=== PATIENT | female | born 2005 | race Caucasian/White ===

== ENCOUNTER 2023-05-31 02:43 | Emergency (ER) | payer OTHER, SELFPAY ==
--- NOTE | 2023-05-31 03:52 | DOWNTIME ---
There was a [employer] Downtime on 05/31/2023 from 0100 to 05/31/2023 at 0322. Downtime documentation of patient's care, including medication administrations, has been reconciled in the electronic record per guidelines. Refer to the
patient's paper chart under the miscellaneous tab to see printed paper medication records and downtime forms.
--- NOTE | 2023-05-31 03:56 | ED.GENMED ---
History of Present Illness
<ERICK Mcdaniel - Last Filed: 05/31/23 04:05>
General
Chief Complaint: Abdominal Symptoms
Source: patient
Time Seen by Provider: 05/31/23 03:56
History of Present Illness
History of Present Illness:
Pt is a 17 year old female presenting with N/V x 4 hours after taking 11 shots of alcohol. Pt reports beginning drinking at 10 pm, noting she began throwing up 1 hour after. She denies using any other substances other than alcohol. She reports 5
episodes of emesis since she began throwing up 4 hours ago. She reports abdominal pain, SOB, double vision, and PINEDO (5/10). She notes she usually gets a headache when she drinks but has never had this reaction before. She denies taking anything for
her current symptoms and states she has tried drinking some water but has not been able to keep any down. She denies chest pain, palpitations, and diarrhea. She states her last meal was at 5 pm and had mozzarella sticks. Pt reports allergy to
Amoxicillin. Pt denies taking any medications.
Review of Systems
<ERICK Mcdaniel - Last Filed: 05/31/23 04:05>
Review of Systems
Allergies reviewed?: Yes
Constitutional: Reports no symptoms
EENT: Reports no symptoms
Respiratory: Reports trouble breathing
Cardiac: Reports no symptoms
ABD/GI: Reports abdominal pain, nausea and vomiting
: Reports no symptoms
Musculoskeletal: Reports no symptoms
Skin: Reports no symptoms
Neurological: Reports dizzy and headache (mild)
Endocrine: Reports no symptoms
Hematologic/Lymphatic: Reports no symptoms
Psychiatric: Reports no symptoms
Phy Exam
<ERICK Mcdaniel - Last Filed: 05/31/23 04:05>
General Physical Exam
General Presentation: no apparent distress and other (intoxicated)
General age: appears stated age
General Skin: warm and dry
General Habitus: normal
General Mental: appears intoxicated
General Hydration: dry mucous membranes
ENT Exam
ENT Exam: EOMI, neck supple and other (gaze-evoked nystagmus)
Cardiovascular Exam
Cardiovascular Exam: regular rate/rhythm, no edema, no murmur and normal peripheral pulses
Pulmonary Exam
Pulmonary Exam: lungs clear, no respiratory distress, no rales, no crackles, no rhonchi and no cough
Neurological Exam
Neurological Exam: appears intoxicated
Mental
Mental Status: appears mod intoxicated
Skin Exam
Skin Exam: normal color
Psychiatric Exam
Psychiatric Exam: normal mood/affect
Course
<ST JonasPA - Last Filed: 05/31/23 04:05>
Orders/Labs/Results
Orders:
Orders
05/31/23 04:16
Ondansetron Orally Disint [Zofran Odt (Orally Disintegrating)] 4 mg PO NOW STA
Vital Signs
Initial and Last Documented VS:
Initial Vital Signs
Resp BP Pulse Ox
16 106/68 98
05/31/23 04:25 05/31/23 04:25 05/31/23 04:25
Last Documented Vital Signs
Resp BP Pulse Ox
16 106/68 98
05/31/23 04:25 05/31/23 04:25 05/31/23 04:25
<Ryan Bay DO - Last Filed: 05/31/23 05:08>
Orders/Labs/Results
Orders:
Orders
05/31/23 04:16
Ondansetron Orally Disint [Zofran Odt (Orally Disintegrating)] 4 mg PO NOW STA
Vital Signs
Initial and Last Documented VS:
Initial Vital Signs
Resp BP Pulse Ox
16 106/68 98
05/31/23 04:25 05/31/23 04:25 05/31/23 04:25
Last Documented Vital Signs
Resp BP Pulse Ox
16 106/68 98
05/31/23 04:25 05/31/23 04:25 05/31/23 04:25
<ERICK Mcdaniel - Last Filed: 05/31/23 04:05>
MDM/Problems Addressed
Differential Diagnosis Includes:
Alcohol intoxication, dehydration, gastritis, hypoglycemia
MDM/Problems Addressed:
Nausea and vomiting
<ERICK Mcdaniel - Last Filed: 05/31/23 04:05>
*Pulse Oximetry
Patient hypoxic: no
*Critical Care Note
Total Time (30-74mins, 75-104mins- exclusive of procedures): Not Applicable
ED Attending Note
<ERICK Mcdaniel - Last Filed: 05/31/23 04:05>
-
Portions of this chart may have been created with voice recognition software.� Occasional wrong word or��sound alike� substitutions may have occurred due to the inherent limitations of voice recognition software.
<Ryan Bay DO - Last Filed: 05/31/23 05:08>
ED Attending Note
Patient seen and examined by attending physician: Yes
I performed the substantive portion of visit, reviewed & personally made and approve the management plan that is documented in note by myself or WILLI.: Yes
ED Attending Note:
17-year-old female presents with nausea and vomiting after doing 11 shots of 'fireball ', and alcoholic beverage. Patient started drinking at 10 and vomited shortly thereafter. She denies taking any other substances. Patient was seen in
conjunction with the PA student. I have reviewed and agree with the history and treatment plan presented. On my independent physical exam, patient is awake, alert, and oriented x3, though somnolent. Heart is regular rate and rhythm. Lungs are
clear to auscultation bilaterally. Moves all 4 extremities.
Discharge Plan
Departure
Patient Disposition: Home (Routine Discharge)
Date of Disposition: 05/31/23
Time of Disposition: 05:07
Patient with high blood pressure during this ER visit?: No
Condition: Good
Discharge Problem:
Alcohol abuse
Instructions: Binge Drinking
Referrals:
NONE,* [Family Provider] -
[facility] [Outside]
Interventions
Interventions:
[facility] Assessment Last Done: 05/31/23 04:20
Discharge Date and Time
Print Language: CANADIAN
[2023-05-31] MEDS: ZOFRAN ODT (ORALLY DISINTEGRATING) 4 MG PO (04:16)
[2023-05-31 04:25] VITALS: BP 106/68
[2023-05-31 05:00] VITALS: BP 111/61
[2023-05-31 06:00] VITALS: BP 111/65
== END 2023-05-31 06:10 | disposition home or self-care (01) ==
LOC: EMR 02:43
PROVIDERS: EMERGENCY PHYSICIAN Student in an Organized Health Care Education/Training Program
DX: F10.10 Alcohol abuse, uncomplicated (principal)
CPT/HCPCS: 99282

== ENCOUNTER 2023-06-06 00:01 | Emergency (ER) | payer OTHER, SELFPAY ==
[2023-06-06 02:49] VITALS: BP 116/72
[2023-06-06 03:00] VITALS: BP 106/65
--- NOTE | 2023-06-06 03:08 | ED.GENMED ---
History of Present Illness
<ERICK Britt - Last Filed: 06/06/23 06:10>
General
Chief Complaint: Abdominal Symptoms
Source: patient
Exam Limitations: none
Time Seen by Provider: 06/06/23 02:54
Nursing documentation reviewed up to this point in time: agreed with
Travel History
Have you had any contact with someone who has COVID-19?: No
Do you have any symptoms of coronavirus? Fever > 100 degrees, chills, cough, shortness of breath, sore throat, loss of taste or smell, muscle aches, or headache?: No
History of Present Illness
History of Present Illness:
Patient is a 17 y/o female presenting with nausea and vomiting x 1 day. Patient states she started vomiting this morning after eating her breakfast. patient states she has vomited 30+ times since then and is unable to keep fluids or food down.
Patient admits to taking an over the counter nausea medication that did not give relief. Patient adm,its to increased diarrhea that is non bloody. Patient admits to abdominal pain that is located in the epigastric region that started at the same
time. Patient admits to dizziness that has gotten worse throughout the day. Patient denies any change in medication, any travel or sick contacts. Patient denies constipation, PINEDO, CP, fever, chills, blood in vomit or stool. Patient denies tobacco in
the last 48 hrs and one drink Monday afternoon.
Review of Systems
<ERICK Britt - Last Filed: 06/06/23 06:10>
Review of Systems
Constitutional: Reports no symptoms
EENT: Reports no symptoms
Respiratory: Reports trouble breathing
Cardiac: Reports no symptoms
ABD/GI: Reports abdominal pain, nausea, vomiting, diarrhea and anorexia
: Reports no symptoms
Musculoskeletal: Reports no symptoms
Neurological: Reports dizzy
Phy Exam
<ERICK Britt - Last Filed: 06/06/23 06:10>
General Physical Exam
General Presentation: well appearing and no apparent distress
General Skin: warm and dry
General Habitus: normal
General Mental: alert
General Hydration: appears well hydrated
ENT Exam
ENT Exam: EOMI, pharynx normal, neck supple and normocephalic
Eye Exam
Eye Exam: PERRL, cornea clear and conjunctiva normal
Cardiovascular Exam
Cardiovascular Exam: regular rate/rhythm, no edema, no murmur and normal peripheral pulses
Pulmonary Exam
Pulmonary Exam: lungs clear, no respiratory distress, no rales, no crackles, no rhonchi, no stridor, no wheezing and no cough
Gastrointestinal Exam
Gastrointestinal Exam: normal bowel sounds, no organomegaly, no cva tenderness and tender (tender to unbiblical region and epigastric region )
Palpation: generalized: Mild tenderness
Neurological Exam
Neurological Exam: alert, oriented x3, no motor deficits and speech normal
Musculoskeletal Exam
Musculoskeletal Exam: full ROM and no edema
Skin Exam
Skin Exam: normal color, warm/dry, no rash and no petechia
Psychiatric Exam
Psychiatric Exam: normal mood/affect
Course
<ERICK Britt - Last Filed: 06/06/23 06:10>
Orders/Labs/Results
Orders:
Orders
06/06/23 03:00
Alcohol Urgent
Complete Blood Count/With Diff Urgent
Comprehensive Metabolic Panel Urgent
HCG, Serum Qualitative Screen Urgent
Comment: ADD ON
Lipase Urgent
Comment: ADD ON
06/06/23 03:24
Add On- LAB Urgent
Tests Added?: ETOH
Add On- LAB Urgent
Tests Added?: lipase, serum qual HCG
06/06/23 03:34
0.9% Sodium Chloride 1000 ml [Nss] 1,000 ml IV BOLUS
Ondansetron Injectable [Zofran] 4 mg IV NOW STA
06/06/23 06:20
Ondansetron Orally Disint [Zofran Odt (Orally Disintegrating)] 4 mg PO NOW STA
Abnormal Lab Results
06/06/23
03:00
WBC 11.8 H 10^3/uL
(4.8-10.8)
Hgb 16.1 H g/dL
(12.0-16.0)
MPV 10.8 H fL
(7.4-10.4)
Absolute Neuts (auto) 10.2 H 10^3/uL
(1.4-6.5)
Absolute Lymphs (auto) 1.1 L 10^3/uL
(1.2-3.4)
Neutrophils % 86.0 H %
(42.2-75.2)
Lymphocytes % 8.9 L %
(20.5-51.1)
Glucose 112 H mg/dl
(70-99)
Total Protein 8.4 H g/dl
(6.3-8.2)
Albumin 5.3 H g/dl
(3.5-5.0)
06/06/23 03:00
06/06/23 03:00
Vital Signs
Initial and Last Documented VS:
Initial Vital Signs
Temp Pulse Resp Pulse Ox
98.3 F 116 18 95
06/06/23 00:17 06/06/23 00:17 06/06/23 00:17 06/06/23 00:17
Last Documented Vital Signs
Temp Pulse Resp BP Pulse Ox
98.3 F 116 18 106/65 100
06/06/23 00:17 06/06/23 00:17 06/06/23 00:17 06/06/23 03:00 06/06/23 03:00
<Tracee Molina DO - Last Filed: 06/06/23 06:49>
Orders/Labs/Results
Orders:
Orders
06/06/23 03:00
Alcohol Urgent
Complete Blood Count/With Diff Urgent
Comprehensive Metabolic Panel Urgent
HCG, Serum Qualitative Screen Urgent
Comment: ADD ON
Lipase Urgent
Comment: ADD ON
06/06/23 03:24
Add On- LAB Urgent
Tests Added?: ETOH
Add On- LAB Urgent
Tests Added?: lipase, serum qual HCG
06/06/23 03:34
0.9% Sodium Chloride 1000 ml [Nss] 1,000 ml IV BOLUS
Ondansetron Injectable [Zofran] 4 mg IV NOW STA
06/06/23 06:20
Ondansetron Orally Disint [Zofran Odt (Orally Disintegrating)] 4 mg PO NOW STA
Abnormal Lab Results
06/06/23
03:00
WBC 11.8 H 10^3/uL
(4.8-10.8)
Hgb 16.1 H g/dL
(12.0-16.0)
MPV 10.8 H fL
(7.4-10.4)
Absolute Neuts (auto) 10.2 H 10^3/uL
(1.4-6.5)
Absolute Lymphs (auto) 1.1 L 10^3/uL
(1.2-3.4)
Neutrophils % 86.0 H %
(42.2-75.2)
Lymphocytes % 8.9 L %
(20.5-51.1)
Glucose 112 H mg/dl
(70-99)
Total Protein 8.4 H g/dl
(6.3-8.2)
Albumin 5.3 H g/dl
(3.5-5.0)
06/06/23 03:00
06/06/23 03:00
Vital Signs
Initial and Last Documented VS:
Initial Vital Signs
Temp Pulse Resp Pulse Ox
98.3 F 116 18 95
06/06/23 00:17 06/06/23 00:17 06/06/23 00:17 06/06/23 00:17
Last Documented Vital Signs
Temp Pulse Resp BP Pulse Ox
98.3 F 116 18 106/65 100
06/06/23 00:17 06/06/23 00:17 06/06/23 00:17 06/06/23 03:00 06/06/23 03:00
<ERICK Britt - Last Filed: 06/06/23 06:10>
MDM/Problems Addressed
Differential Diagnosis Includes:
appendicitis
gastroenteritis
pancreatitis
cholecystitis
MDM/Problems Addressed:
nasuea and vomitting
<ERICK Britt - Last Filed: 06/06/23 06:10>
*Critical Care Note
Total Time (30-74mins, 75-104mins- exclusive of procedures): Not Applicable
<Tracee Molina DO - Last Filed: 06/06/23 06:49>
*Pulse Oximetry
Patient hypoxic: no
<ERICK Britt - Last Filed: 06/06/23 06:10>
Update Note
Update Note:
patient was given ice chips which she was able to handle; no bout of vomiting since arrival but states she is still nauseous
ED Attending Note
<ERICK Britt - Last Filed: 06/06/23 06:10>
-
Portions of this chart may have been created with voice recognition software.� Occasional wrong word or��sound alike� substitutions may have occurred due to the inherent limitations of voice recognition software.
<Tracee Molina DO - Last Filed: 06/06/23 06:49>
ED Attending Note
Patient seen and examined by attending physician: Yes
I performed the substantive portion of visit, reviewed & personally made and approve the management plan that is documented in note by myself or WILLI.: Yes
I performed a history and physical exam of patient and discussed management with resident, I reviewed resident's note and agree with documented findings and plan of care.: Yes
ED Attending Note:
This is a 17-year-old student from [facility] [employer] who presents with nausea, vomiting, diarrhea that began yesterday afternoon. Questionable low-grade fever. She denies abdominal pain. No close contacts with similar symptoms and no
recent travel nor recent antibiotic use.
She denies hematemesis nor hematochezia.
She presented to this ED 5 days ago with nausea and vomiting after significant alcohol consumption.
She reports no further alcohol consumption since that night.
She denies risk of .
She takes no medicines on a daily basis.
GENERAL: 17-year-old female appears her stated age, bright and alert, pleasant, appears in no acute distress. A roommate is accompanying.
EYE: anicteric
NECK: Supple, nontender, no meningismus, no significant adenopathy.
ENT: Oral mucosa is minimally dry. No rhinorrhea.
CARDIAC: Regular rate and rhythm. no murmur.
LUNGS: Clear breath sounds bilaterally, no acute respiratory distress, no wheezes/rales/rhonchi
ABDOMEN: Soft, nondistended, without focal tenderness, no r/g, no cvat. normoactive BS.
NEUROLOGICAL: Alert and oriented x3, no focal neuro deficits. Gait is steady.
SKIN: Warm and dry, normal color, skin intact. No rash.
MUSCULOSKELETAL: No C/C/E. peripheral pulses are full and equal b/l. No palpable tenderness.
PSYCH: Normal and appropriate interaction.
Concern for acute gastroenteritis. Abdominal exam soft, benign, nontender.
Less likely alcohol consumption related. No evidence of toxidrome on exam.
Will medicate with IV Zofran, IV fluids. Clinically appears at least very minimally dehydrated but hemodynamically stable.
Will check labs.
Reassess after medications.
06/06/2023 0640 AM
Patient continues with some nausea but has had no vomiting, no diarrhea and tolerating ice chips.
Abdomen remains soft and nontender.
Labs show minimally elevated white blood cell count. Unremarkable chemistries.
I suspect a viral versus foodborne gastroenteritis and recommend supportive measures, limiting diet to clear liquids today, slowly advance as tolerated.
Will prescribe Zofran ODT for as needed nausea.
Prompt follow-up with PCP versus health services.
Discharge Plan
Departure
Patient Disposition: Home (Routine Discharge)
Date of Disposition: 06/06/23
Time of Disposition: 06:41
Patient with high blood pressure during this ER visit?: No
Condition: Good
Discharge Problem:
Acute gastroenteritis
Instructions: Clear Liquid Diet, Viral Gastroenteritis, Adult (DC)
Prescriptions:
New
ondansetron 4 mg tablet,disintegrating
4 mg PO QID PRN (Reason: nausea and vomiting) Qty: 20 0RF
Referrals:
NONE,* [Family Provider] -
Activity Restrictions/Additional Instructions:
Limit your diet to clear liquids today, slowly advance to soft bland foods thereafter.
Follow-up with [facility] [place] for recheck.
Interventions
Interventions:
*Risk Screen - Suicide Last Done: 06/06/23 00:19
*General Assessment Last Done: 06/06/23 00:19
*Neglect/Abuse Screening Last Done: 06/06/23 00:19
ED- Fall Risk Assessment Last Done: 06/06/23 03:03
CY-Fxcexa-Yffnxolifq Assessment Last Done: 06/06/23 03:03
Discharge Date and Time
Print Language: MONEGASQUE
[2023-06-06 03:24] LABS: % Basophils 0.5 % (0-2); % Eosinophils 0.2 % (0-6); % Immature Granulocytes 0.3 % (0-0.5); % Lymphocytes 8.9 % (20.5-51.1); % Monocytes 4.1 % (1.7-9.3); Absolute Basophils 0.1 10^3/uL (0-0.2); Absolute Lymphocytes 1.1 10^3/uL (1.2-3.4); Absolute Monocytes 0.5 10^3/uL (0.1-0.6); Absolute Neutrophils 10.2 10^3/uL (1.4-6.5); Hematocrit 44.9 % (37.0-47.0); Hemoglobin 16.1 g/dL (12.0-16.0); Mean Corp Hgb Conc. 35.9 g/dL (33.0-37.0); Mean Corpuscular Hgb 29.9 pg (27.0-31.0); Mean Corpuscular Volume 83.3 fL (81.0-99.0); Mean Platelet Volume 10.8 fL (7.4-10.4); Nucleated Red Blood Cells % 0 %; Platelet Count 371 10^3/uL (130-400); Red Blood Cell Count 5.39 10^6/uL (4.20-5.40); Red Cell Dist. Width 12.3 % (11.5-14.5); White Blood Cell Count 11.8 10^3/uL (4.8-10.8)
[2023-06-06] MEDS: ZOFRAN 4 MG IV (03:36)
[2023-06-06] MEDS: NSS 1000 IV (03:36)
[2023-06-06 03:41] LABS: HCG, Serum Qualitative Screen Negative
[2023-06-06 03:53] LABS: ALT (SGPT) 18 U/L (0-35); AST (SGOT) 28 U/L (14-36); Albumin 5.3 g/dl (3.5-5.0); Alcohol None Detected; Alkaline Phosphatase 73 U/L (38-126); Blood Urea Nitrogen 12 mg/dl (7-17); Calcium 10.1 mg/dl (8.4-10.2); Carbon Dioxide 23 mmol/L (22-30); Chloride 104 mmol/L (98-107); Glucose 112 mg/dl (70-99); Lipase 177 U/L (23-300); Potassium 4.2 mmol/L (3.5-5.1); Sodium 138 mmol/L (135-145); Total Bilirubin 0.9 mg/dl (0.2-1.3); Total Protein 8.4 g/dl (6.3-8.2); eGFR > 60.00
[2023-06-06 04:00] VITALS: BP 103/64
[2023-06-06 05:00] VITALS: BP 108/73
[2023-06-06 06:00] VITALS: BP 123/77
--- NOTE | 2023-06-06 06:09 | EDRN ---
Patient tolerated ice chips, just feels nauseous, informed Dr. Molina
[2023-06-06] MEDS: ZOFRAN ODT (ORALLY DISINTEGRATING) 4 MG PO (06:24)
== END 2023-06-06 06:58 | disposition home or self-care (01) ==
LOC: EMR 00:01
PROVIDERS: EMERGENCY PHYSICIAN Emergency Medicine
DX: K52.9 Noninfective gastroenteritis and colitis, unspecified (principal); E86.0 Dehydration
CPT/HCPCS: 99283; 96374; 96361; 80053; 82077; 83690; 84703; 85025

== ENCOUNTER 2024-01-24 21:48 | Emergency (ER) | payer OTHER, SELFPAY ==
[2024-01-24 21:49] VITALS: BMI 29.3
[2024-01-24 21:55] VITALS: BP 120/76
--- NOTE | 2024-01-24 22:39 | ED.GENMED ---
History of Present Illness
General
Chief Complaint: Abdominal Pain
Source: patient
Exam Limitations: none
Time Seen by Provider: 01/24/24 22:28
History of Present Illness
History of Present Illness:
18-year-old female complaining of lower abdominal pain. Has been getting on a almost daily basis for months. Has not had her menses for 4 to 5 months. She has had multiple negative test. Today's pain was worse earlier. She did take
Motrin with moderate relief of symptoms. No back pain or flank pain. No fever or chills. No urinary symptoms.
Past History
Past History
ED Past Medical History: None
Review of Systems
Review of Systems
All Other Systems: Not applicable
Constitutional: Denies fever or chills
: Denies dysuria, frequency or flank pain
Phy Exam
Physical Exam
Physical Exam:
GENERAL: Alert and oriented in no apparent distress
EYE: Orbits normal.
NECK: Supple
CARDIAC: Regular rate and rhythm without any obvious murmurs.
LUNGS: Clear breath sounds,normal
ABDOMEN: Soft, bowel sounds present. No distention. Mild relatively nonlocalizing lower abdominal tenderness. No rebound or guarding no mass or hernia
NEUROLOGICAL: Alert and oriented , grossly non-focal
SKIN: Warm and dry, no rash or lesion, no discoloration, skin intact.
MUSCULOSKELETAL: No edema,no deformity.Good color
PSYCH: Normal and appropriate interaction.
Course
Orders/Labs/Results
Orders:
Orders
01/24/24 22:28
IV Insert/Care/Rem.- Treatment PRN
Urinalysis Reflex To Culture Urgent
Date Specimen was Collected: 01/25/24
Time Specimen was Collected: 00:56
0.9% Sodium Chloride 1000 ml [Nss] 1,000 ml IV BOLUS
01/24/24 22:29
Test Result ONCE
01/24/24 22:38
Chlamydia/GC by PCR Urgent
KAUSHAL Source: Urine
Specimen Description:
Source:: URINE
Date Specimen was Collected: 01/25/24
Time Specimen was Collected: 00:56
01/24/24 22:54
Complete Blood Count/With Diff Urgent
Comprehensive Metabolic Panel Urgent
HCG, Serum Qualitative Screen Urgent
Lipase Urgent
01/25/24 00:00
US Abdomen - Appendix Only Urgent
Reason For Exam: Lower abdominal pain
US Pelvis Only (non-obstetric) Urgent
Reason For Exam: Lower abdominal pain/missed menses
Abnormal Lab Results
01/24/24 01/25/24
22:54 00:58
WBC 11.5 H 10^3/uL
(4.8-10.8)
MPV 10.7 H fL
(7.4-10.4)
Absolute Neuts (auto) 8.9 H 10^3/uL
(1.4-6.5)
Absolute Monos (auto) 0.7 H 10^3/uL
(0.1-0.6)
Neutrophils % 77.5 H %
(42.2-75.2)
Lymphocytes % 13.4 L %
(20.5-51.1)
Urine Ketones 1+ A
(Negative)
01/24/24 22:54
01/24/24 22:54
Vital Signs
Initial and Last Documented VS:
Initial Vital Signs
Temp Pulse Resp BP Pulse Ox
99.9 F 98 16 120/76 98
01/24/24 21:55 01/24/24 21:55 01/24/24 21:55 01/24/24 21:55 01/24/24 21:55
Last Documented Vital Signs
Temp Pulse Resp BP Pulse Ox
99.9 F 67 16 116/69 98
01/24/24 21:55 01/25/24 00:20 01/25/24 00:20 01/25/24 00:20 01/24/24 21:55
MDM/Problems Addressed
Differential Diagnosis Includes:
Clearly most suspicious of a [employer] etiology given the missed menstrual periods for months and vague lower abdominal discomfort. test pending. Ultrasound pending. Will also add urine GC and chlamydia. Highly doubt appendicitis or any
acute GI issue. Will do a appendiceal ultrasound as a screen.
*Radiology
Radiology exam reviewed: radiology read reviewed (Negative ultrasound of the appendix and ovaries. Good flow to both ovaries.)
*Pulse Oximetry
Patient hypoxic: no
*Critical Care Note
Total Time (30-74mins, 75-104mins- exclusive of procedures): Not Applicable
Update Note
Update Note:
0150... Patient updated. Nothing positive by ultrasound to explain patient's symptoms. However she has not had a menstrual period in 4 to 5 months which makes a [employer] issue the more likely etiology for her pain. Pain is back to baseline. I did
explain to her that I would like to get a CAT scan to evaluate appendicitis given a nondiagnostic test results so far. She does have a minimal white count. However her appendix ultrasound is unremarkable. She has had symptoms for months. Her
pain is back to baseline. She does not want to get the CAT scan at this point but would rather wait and follow-up with her [employer] physician. She is aware of my reasoning for wanting to CAT scan tonight to rule out appendicitis or other surgical
issue. She is also aware of the risks. She did promise she would return if her pain progresses beyond baseline or fever or other symptoms.
ED Attending Note
-
Portions of this chart may have been created with voice recognition software.� Occasional wrong word or��sound alike� substitutions may have occurred due to the inherent limitations of voice recognition software.
Discharge Plan
Departure
Patient Disposition: Home (Routine Discharge)
Date of Disposition: 01/25/24
Time of Disposition: 01:54
Patient with high blood pressure during this ER visit?: No
Discharge Problem:
Acute on subacute pelvic pain
Instructions: Abdominal Pain
Prescriptions:
No Action
ondansetron 4 mg tablet,disintegrating
4 mg PO QID PRN (Reason: nausea and vomiting) Qty: 20 0RF
Referrals:
UNKNOWN - PT DOES,NOT KNOW [Family Provider] -
Activity Restrictions/Additional Instructions:
Follow-up closely with your [employer] physician
As we discussed, I recommend a CAT scan to fully rule out appendicitis as an explanation for this issue. Please return with any progression of symptoms or if you change your mind about getting the CAT scan
Interventions
Interventions:
*Risk Screen - Suicide Last Done: 01/24/24 21:55
*General Assessment Last Done: 01/24/24 21:55
*Neglect/Abuse Screening Last Done: 01/24/24 21:55
*ED COVID-19 Vaccine History Last Done: 01/24/24 21:55
Discharge Date and Time
Print Language: MOHAWK
[2024-01-24] MEDS: NSS 1000 IV (22:55)
[2024-01-24 23:04] LABS: % Basophils 0.7 % (0-2); % Eosinophils 1.7 % (0-6); % Immature Granulocytes 0.3 % (0-0.5); % Lymphocytes 13.4 % (20.5-51.1); % Monocytes 6.4 % (1.7-9.3); % Neutrophils 77.5 % (42.2-75.2); Absolute Basophils 0.1 10^3/uL (0-0.2); Absolute Eosinophils 0.2 10^3/uL (0-0.7); Absolute Lymphocytes 1.5 10^3/uL (1.2-3.4); Absolute Monocytes 0.7 10^3/uL (0.1-0.6); Absolute Neutrophils 8.9 10^3/uL (1.4-6.5); Hematocrit 39.4 % (37.0-47.0); Hemoglobin 13.1 g/dL (12.0-16.0); Mean Corp Hgb Conc. 33.2 g/dL (33.0-37.0); Mean Corpuscular Hgb 29.2 pg (27.0-31.0); Mean Corpuscular Volume 87.8 fL (81.0-99.0); Mean Platelet Volume 10.7 fL (7.4-10.4); Nucleated Red Blood Cells % 0 %; Platelet Count 269 10^3/uL (130-400); Red Blood Cell Count 4.49 10^6/uL (4.20-5.40); Red Cell Dist. Width 12.1 % (11.5-14.5); White Blood Cell Count 11.5 10^3/uL (4.8-10.8)
[2024-01-24 23:24] LABS: ALT (SGPT) 18 U/L (0-35); AST (SGOT) 22 U/L (14-36); Albumin 4.5 g/dl (3.5-5.0); Alkaline Phosphatase 77 U/L (38-126); Blood Urea Nitrogen 10 mg/dl (7-17); Calcium 9.2 mg/dl (8.4-10.2); Carbon Dioxide 24 mmol/L (22-30); Chloride 102 mmol/L (98-107); Estimated Creatinine Clearance > 125 ml/min; Glucose 87 mg/dl (70-99); Lipase 160 U/L (23-300); Potassium 3.8 mmol/L (3.5-5.1); Sodium 137 mmol/L (135-145); Total Bilirubin 0.5 mg/dl (0.2-1.3); Total Protein 7.2 g/dl (6.3-8.2); eGFR > 60.00
[2024-01-24 23:32] LABS: HCG, Serum Qualitative Screen Negative
[2024-01-25 00:20] VITALS: BP 116/69
[2024-01-25 01:14] LABS: Urine Albumin Negative (Neg - Trace); Urine Bilirubin Negative (Negative); Urine Character Clear (Clear); Urine Color Yellow; Urine Glucose Negative (Negative); Urine Ketone 1+ (Negative); Urine Leukocyte Negative (Negative); Urine Nitrite Negative (Negative); Urine Occult Blood Negative (Negative); Urine Urobilinogen Negative (Neg - 1+)
[2024-01-25 02:21] VITALS: BP 121/70
== END 2024-01-25 02:21 | disposition home or self-care (01) ==
LOC: EMR 21:48
PROVIDERS: EMERGENCY PHYSICIAN Emergency Medicine
DX: R10.2 Pelvic and perineal pain (principal)
CPT/HCPCS: 99283; 96360; 76705; 76856; 80053; 81003; 83690; 84703; 85025; 87491; 87591

== ENCOUNTER 2024-01-27 01:32 | Emergency (ER) | payer OTHER, SELFPAY ==
[2024-01-27 01:34] VITALS: BP 123/73
--- NOTE | 2024-01-27 01:47 | ED.GENMED ---
History of Present Illness
General
Chief Complaint: Throat Problem
Source: patient
Exam Limitations: none
Time Seen by Provider: 01/27/24 01:40
History of Present Illness
History of Present Illness:
This is a 18 year old female that comes in with c/o sore throat. States that she went to the [facility] and was told that she has strep throat. States that since she is allergic to Amoxicillin she was given Zithromax. States that she has had 2
doses and feels that she is not getting any better. State that she feels like she can't swallow and her pain is increased. States that she feels a little SOB due to her sore throat, has been nauseated and had diarrhea. States that she is slightly
dizzy. Denies any fever, chills, chest pain, abd pain, vomiting, headache, urinary burning.
Past History
Past History
ED Past Medical History: None; Negative Asthma, HTN, Hypercholesterolemia or NIDDM
ED Past Surgical History: None
Social History
Tobacco: Non-smoker
Alcohol: Occasional
Personal: Single
Living: other ([facility])
Review of Systems
Review of Systems
All Other Systems: ROS reviewed and negative except as documented in HPI and ROS
Constitutional: Denies fever or chills
EENT: Reports sore throat
Respiratory: Reports trouble breathing (Slight); Denies cough
Cardiac: Denies chest pain
ABD/GI: Reports nausea and diarrhea; Denies abdominal pain or vomiting
: Reports no symptoms; Denies dysuria, frequency or urgency
Musculoskeletal: Reports no symptoms
Skin: Reports no symptoms
Neurological: Reports dizzy (Slight); Denies headache
Psychiatric: Reports no symptoms
Phy Exam
General Physical Exam
General Presentation: no apparent distress
General age: appears stated age
General Skin: warm and dry
General Habitus: normal
General Mental: alert
General Hydration: appears well hydrated
ENT Exam
ENT Exam: TM's normal, neck supple and other (Tonsils both enlarged and uvula is midline. )
Eye Exam
Eye Exam: EOMI
Cardiovascular Exam
Cardiovascular Exam: regular rate/rhythm, no edema, no murmur and normal peripheral pulses
Pulmonary Exam
Pulmonary Exam: lungs clear, no respiratory distress, no rales, chest non tender, no crackles, no rhonchi, no wheezing and no cough
Gastrointestinal Exam
Gastrointestinal Exam: normal bowel sounds, non tender, soft, no organomegaly, no pulsatile mass and non distended
Musculoskeletal Exam
Musculoskeletal Exam: full ROM and no edema
Skin Exam
Skin Exam: normal color, warm/dry, no rash and no petechia
Psychiatric Exam
Psychiatric Exam: normal mood/affect
Course
Orders/Labs/Results
Orders:
Orders
01/27/24 01:46
0.9% Sodium Chloride 1000 ml [Nss] 1,000 ml IV BOLUS
Acetaminophen [Tylenol] 1,000 mg PO NOW STA
Dexamethasone Sod Phosphate [Decadron] 20 mg IV NOW STA
Ketorolac [Toradol] 30 mg IV NOW STA
01/27/24 01:49
Ondansetron Injectable [Zofran] 4 mg IV NOW STA
01/27/24 01:52
Test Result ONCE
01/27/24 02:06
Complete Blood Count/With Diff Urgent
Comprehensive Metabolic Panel Urgent
HCG, Serum Qualitative Screen Urgent
Monotest Urgent
Abnormal Lab Results
01/27/24
02:06
MPV 10.9 H fL
(7.4-10.4)
Absolute Monos (auto) 0.7 H 10^3/uL
(0.1-0.6)
Lymphocytes % 16.7 L %
(20.5-51.1)
Monoscreen Positive A
(Negative)
01/27/24 02:06
01/27/24 02:06
Positive for [place]. Otherwise labs normal. HCG negative.
Vital Signs
Initial and Last Documented VS:
Initial Vital Signs
Temp Pulse Resp BP Pulse Ox
98.7 F 90 14 123/73 97
01/27/24 01:34 01/27/24 01:34 01/27/24 01:34 01/27/24 01:34 01/27/24 01:34
Last Documented Vital Signs
Temp Pulse Resp BP Pulse Ox
98.7 F 90 14 123/73 97
01/27/24 01:34 01/27/24 01:34 01/27/24 01:34 01/27/24 01:34 01/27/24 01:34
MDM/Problems Addressed
Differential Diagnosis Includes:
Strep Throat. Tonsillar abscess, [place]
MDM/Problems Addressed:
This is a 18 year old female that was diagnosed with strep throat. States that she has taken 2 doses of antibiotic and she feels that this is not helping.
Will check labs. Give steroids, IV fluids and medicate for pain.
Back into see patient. Explained that she is positive for [place]. The Zithromax will treat the strep but the mono will just take time. Patient to increase her water intake to 8-8oz glasses daily. Alternate with Tylenol and Ibuprofen for fever and
pain. Patient was given IV steroids there that will help decrease the inflammation. Patient will get given a note for school. Will discharge patient home.
Chronic conditions affecting care:
NA
Acute Exacerbation and/or Progression of Chronic Illness:
NA
*Pulse Oximetry
Patient hypoxic: no
*EKG
Interpreted by ED Provider?: NA
Rate: EKG- N/A
*Cardiology Coordinator Interpretation
Rate: Cardiology Coordinator- N/A
*Critical Care Note
Total Time (30-74mins, 75-104mins- exclusive of procedures): Not Applicable
ED Attending Note
-
Portions of this chart may have been created with voice recognition software.� Occasional wrong word or��sound alike� substitutions may have occurred due to the inherent limitations of voice recognition software.
Discharge Plan
Departure
Patient Disposition: Home (Routine Discharge)
Date of Disposition: 01/27/24
Time of Disposition: 02:53
Patient with high blood pressure during this ER visit?: No
Condition: Good
Covid-19: Not Applicable
Discharge Problem:
Monospot test positive, Acute sore throat
Instructions: Sore Throat, Adult (DC), Mononucleosis (DC)
Prescriptions:
No Action
ondansetron 4 mg tablet,disintegrating
4 mg PO QID PRN (Reason: nausea and vomiting) Qty: 20 0RF
Referrals:
NONE,* [Family Provider] -
Stand Alone Forms: Back to School
Activity Restrictions/Additional Instructions:
As discussed, your blood work shows that you have [place]. Otherwise your blood work is normal. Please continue with your antibiotic to treat the strep throat. Increase your water intake to 8-8oz glasses daily. You may also gargle with warm salt water
to help kill any bacteria. Follow up with the family doctor for recheck. You have been given IV steroid here that will help decrease the inflammation. NO CONTACT SPORTS. IF YOU HAVE INCREASED OR CHANGING PAIN, OR YOU HAVE ANY OTHER CONCERNS PLEASE
RETURN TO THE EMERGENCY ROOM.
Interventions
Interventions:
*Risk Screen - Suicide Last Done: 01/27/24 01:34
*General Assessment Last Done: 01/27/24 01:34
*Neglect/Abuse Screening Last Done: 01/27/24 01:34
ED-EENT Assessment Last Done: 01/27/24 02:14
ED- Pulmonary Assessment Last Done: 01/27/24 02:14
Discharge Date and Time
Print Language: POLISH
[2024-01-27 02:00] VITALS: BP 118/73
[2024-01-27 02:05] VITALS: BMI 28.5
[2024-01-27] MEDS: ZOFRAN 4 MG IV (02:06)
[2024-01-27] MEDS: TYLENOL 1000 MG PO (02:06)
[2024-01-27] MEDS: DECADRON 20 MG IV (02:07)
[2024-01-27] MEDS: TORADOL 30 MG IV (02:07)
[2024-01-27] MEDS: NSS 1000 IV (02:07)
[2024-01-27 02:33] LABS: % Basophils 0.8 % (0-2); % Immature Granulocytes 0.3 % (0-0.5); % Lymphocytes 16.7 % (20.5-51.1); % Monocytes 8.1 % (1.7-9.3); % Neutrophils 70.1 % (42.2-75.2); Absolute Basophils 0.1 10^3/uL (0-0.2); Absolute Eosinophils 0.3 10^3/uL (0-0.7); Absolute Lymphocytes 1.4 10^3/uL (1.2-3.4); Absolute Monocytes 0.7 10^3/uL (0.1-0.6); Hematocrit 41.8 % (37.0-47.0); Mean Corp Hgb Conc. 33.5 g/dL (33.0-37.0); Mean Corpuscular Hgb 29.4 pg (27.0-31.0); Mean Corpuscular Volume 87.8 fL (81.0-99.0); Mean Platelet Volume 10.9 fL (7.4-10.4); Nucleated Red Blood Cells % 0 %; Platelet Count 290 10^3/uL (130-400); Red Blood Cell Count 4.76 10^6/uL (4.20-5.40); White Blood Cell Count 8.6 10^3/uL (4.8-10.8)
[2024-01-27 02:38] LABS: HCG, Serum Qualitative Screen Negative
[2024-01-27 02:42] LABS: Monotest Positive (Negative)
[2024-01-27 02:44] LABS: ALT (SGPT) 18 U/L (0-35); AST (SGOT) 18 U/L (14-36); Albumin 4.2 g/dl (3.5-5.0); Alkaline Phosphatase 70 U/L (38-126); Blood Urea Nitrogen 7 mg/dl (7-17); Calcium 9.1 mg/dl (8.4-10.2); Carbon Dioxide 24 mmol/L (22-30); Chloride 106 mmol/L (98-107); Estimated Creatinine Clearance > 125 ml/min; Glucose 90 mg/dl (70-99); Sodium 144 mmol/L (135-145); Total Bilirubin 0.5 mg/dl (0.2-1.3); Total Protein 6.9 g/dl (6.3-8.2); eGFR > 60.00
== END 2024-01-27 03:08 | disposition home or self-care (01) ==
LOC: EMR 01:32
PROVIDERS: Clinical Nurse Specialist Family Health; EMERGENCY PHYSICIAN Student in an Organized Health Care Education/Training Program
DX: B27.90 Infectious mononucleosis, unspecified without complication (principal); I10 Essential (primary) hypertension
CPT/HCPCS: 99284; 96374; 96375 ×2; 96361; 80053; 84703; 85025; 86308

== ENCOUNTER 2024-02-07 22:00 | Emergency (ER) | payer OTHER, SELFPAY ==
[2024-02-07 22:15] VITALS: BP 109/81
[2024-02-07] MEDS: NSS 1000 IV (23:17)
[2024-02-07 23:24] LABS: % Eosinophils 2.2 % (0-6); % Immature Granulocytes 1.3 % (0-0.5); % Lymphocytes 17.1 % (20.5-51.1); % Monocytes 6.1 % (1.7-9.3); % Neutrophils 72.3 % (42.2-75.2); Absolute Basophils 0.2 10^3/uL (0-0.2); Absolute Eosinophils 0.3 10^3/uL (0-0.7); Absolute Immature Granulocytes 0.2 10^3/uL (0-0.05); Absolute Lymphocytes 2.7 10^3/uL (1.2-3.4); Absolute Neutrophils 11.4 10^3/uL (1.4-6.5); Hematocrit 41.7 % (37.0-47.0); Mean Corp Hgb Conc. 33.6 g/dL (33.0-37.0); Mean Corpuscular Hgb 28.6 pg (27.0-31.0); Mean Corpuscular Volume 85.1 fL (81.0-99.0); Mean Platelet Volume 9.6 fL (7.4-10.4); Nucleated Red Blood Cells % 0 %; Platelet Count 383 10^3/uL (130-400); Red Cell Dist. Width 12.1 % (11.5-14.5); White Blood Cell Count 15.8 10^3/uL (4.8-10.8)
[2024-02-07 23:39] LABS: HCG, Serum Qualitative Screen Negative
[2024-02-07 23:44] LABS: Monotest Positive (Negative)
[2024-02-07 23:45] LABS: ALT (SGPT) 30 U/L (0-35); AST (SGOT) 26 U/L (14-36); Albumin 4.1 g/dl (3.5-5.0); Alkaline Phosphatase 72 U/L (38-126); Blood Urea Nitrogen 11 mg/dl (7-17); Calcium 9.4 mg/dl (8.4-10.2); Carbon Dioxide 28 mmol/L (22-30); Chloride 102 mmol/L (98-107); Glucose 84 mg/dl (70-99); Potassium 4.5 mmol/L (3.5-5.1); Sodium 138 mmol/L (135-145); Total Bilirubin 0.2 mg/dl (0.2-1.3); Total Protein 7.1 g/dl (6.3-8.2); eGFR > 60.00
[2024-02-08] MEDS: DECADRON 6 MG IV (00:59)
--- NOTE | 2024-02-08 01:03 | ED.GENMED ---
History of Present Illness
General
Chief Complaint: Throat Problem
Source: patient
Exam Limitations: none
Time Seen by Provider: 02/07/24 22:50
History of Present Illness
History of Present Illness:
Patient started with a sore throat about 2 weeks ago. Diagnosed with mono and strep at that time. Started a course of antibiotics. Developed more symptoms on the right side. Seen at a another hospital. Diagnosed with a peritonsillar abscess.
Drainage by ENT there although apparently was a difficult drainage. Has been on clindamycin and steroids for the last 10 days. However symptoms have not improved. Feels like there is a slight tightness in her right neck. Able to swallow. No
true shortness of breath.
Past History
Past History
ED Past Medical History: None; Negative Asthma, HTN, Hypercholesterolemia or NIDDM
ED Past Surgical History: None
Social History
Tobacco: Non-smoker
Alcohol: Occasional
Personal: Single
Living: other ([facility])
Review of Systems
Review of Systems
All Other Systems: Not applicable
Respiratory: Reports no symptoms
Phy Exam
Physical Exam
Physical Exam:
GENERAL: Alert and oriented in no apparent distress
EYE: Orbits normal.
NECK: Supple, questionable mild swelling at the right angle of the mandible.
ENT: Pharynx with large erythematous tonsils asymmetrically more swollen on the right. Mildly boggy uvula. Questionable soft palate swelling and erythema to the right posterior soft palate. Minimal trismus. However no drooling no stridor.
Speech relatively normal.
CARDIAC: Regular rate and rhythm without any obvious murmurs.
LUNGS: Clear breath sounds,normal
ABDOMEN: Soft, without focal tenderness or distention. No liver or spleen palpable
NEUROLOGICAL: Alert and oriented , grossly non-focal
SKIN: Warm and dry, no rash or lesion, no discoloration, skin intact.
MUSCULOSKELETAL: No edema,no deformity.Good color
PSYCH: Normal and appropriate interaction.
Course
Orders/Labs/Results
Orders:
Orders
02/07/24 23:01
IV Insert/Care/Rem.- Treatment PRN
0.9% Sodium Chloride 1000 ml [Nss] 1,000 ml IV BOLUS
02/07/24 23:02
Test Result ONCE
02/07/24 23:15
Complete Blood Count/With Diff Urgent
Comprehensive Metabolic Panel Urgent
HCG, Serum Qualitative Screen Urgent
Monotest Urgent
02/08/24 00:00
CT Neck With Iv Contrast Urgent
Reason For Exam: Ongoing asymmetrical right neck pain and swelling.
02/08/24 00:55
Dexamethasone Sod Phosphate [Decadron] 6 mg IV NOW STA
02/08/24 01:04
Ketorolac [Toradol] 15 mg IV NOW STA
02/08/24 01:08
Clindamycin Phosphate [Cleocin] 300 mg 0.9% Sodium Chloride [Nss] 50 ml IV NOW
Abnormal Lab Results
02/07/24
23:15
WBC 15.8 H 10^3/uL
(4.8-10.8)
Abs Immat Gran (auto) 0.2 H 10^3/uL
(0-0.05)
Absolute Neuts (auto) 11.4 H 10^3/uL
(1.4-6.5)
Absolute Monos (auto) 1.0 H 10^3/uL
(0.1-0.6)
Immature Gran % 1.3 H %
(0-0.5)
Lymphocytes % 17.1 L %
(20.5-51.1)
Monoscreen Positive A
(Negative)
02/07/24 23:15
02/07/24 23:15
Vital Signs
Initial and Last Documented VS:
Initial Vital Signs
Temp Pulse Resp BP Pulse Ox
98 F 91 18 109/81 97
02/07/24 22:15 02/07/24 22:15 02/07/24 22:15 02/07/24 22:15 02/07/24 22:15
Last Documented Vital Signs
Temp Pulse Resp BP Pulse Ox
98 F 95 18 109/76 97
02/07/24 22:15 02/08/24 09:18 02/08/24 01:35 02/08/24 09:18 02/08/24 09:18
MDM/Problems Addressed
Differential Diagnosis Includes:
Concern for large peritonsillar abscess clinically. Airway is stable. CT scan showed a large right-sided abscess. Report was sent to ENT. They will evaluate first thing in the morning and likely drain the abscess. She was given a dose of
steroids and antibiotics.
*Radiology
Radiology exam reviewed: radiology read reviewed (Large peritonsillar abscess)
*Pulse Oximetry
Patient hypoxic: no
*Critical Care Note
Total Time (30-74mins, 75-104mins- exclusive of procedures): Not Applicable
Update Note
Update Note:
0100... Discussed with ENT. Report of CT sent to them. We will hold in ED and they will drain in the a.m. Airway stable. Will give a dose of steroids and clindamycin.
ED Attending Note
-
Portions of this chart may have been created with voice recognition software.� Occasional wrong word or��sound alike� substitutions may have occurred due to the inherent limitations of voice recognition software.
Discharge Plan
Departure
Patient Disposition: Home (Routine Discharge)
Patient with high blood pressure during this ER visit?: No
Discharge Problem:
Abscess, peritonsillar
Instructions: Peritonsillar Abscess, Adult (DC)
Prescriptions:
New
clindamycin HCl 150 mg capsule
450 mg PO TID 7 Days Qty: 63 0RF
No Action
ondansetron 4 mg tablet,disintegrating
4 mg PO QID PRN (Reason: nausea and vomiting) Qty: 20 0RF
Referrals:
Toñito Matta MD [Active] - Call in 1-3 days for appt
Stand Alone Forms: Back to School
Activity Restrictions/Additional Instructions:
Thank you for visiting the Emergency Department at [facility].
1. Please schedule a follow up appointment as directed. Call first thing tomorrow morning to make an appointment.
2. If indicated, please take your medications as instructed and indicated on discharge paperwork.
3. If any of your symptoms do not improve, or persist, or become more severe within 6-12 hours, please return to the emergency department for further care.
4. Please return to the emergency department if you develop a headache, neck pain/stiffness, fever greater than 100.4F, chest pain, shortness of breath, persistent nausea, vomiting, slurred speech, difficulty walking, numbness/tingling, weakness,
signs of infection or any other symptoms that are worrisome to you.
Please call [phone] if you have any questions.
Interventions
Interventions:
*Risk Screen - Suicide Last Done: 02/07/24 22:15
*General Assessment Last Done: 02/07/24 22:15
*Neglect/Abuse Screening Last Done: 02/07/24 22:15
ED- Fall Risk Assessment Last Done: 02/08/24 01:34
*ED COVID-19 Vaccine History Last Done: 02/07/24 22:15
*Nursing Disposition Last Done: 02/08/24 10:13
ED-EENT Assessment Last Done: 02/07/24 23:19
ED- Pulmonary Assessment Last Done: 02/07/24 23:19
Discharge Date and Time
Discharge Date/Time: 02/08/24 10:14
Print Language: LITHUANIAN
[2024-02-08] MEDS: TORADOL 15 MG IV (01:07)
[2024-02-08] MEDS: CLEOCIN 52 MG IV (01:32)
[2024-02-08 01:34] VITALS: BMI 25.8
[2024-02-08 01:35] VITALS: BP 102/52
[2024-02-08 09:18] VITALS: BP 109/76
--- NOTE | 2024-02-08 09:28 | CON.MD ---
Consultation - Medical
-
Pt seen and full consult dictated.
Right peritonsillar abscess drained.
She may be discharged one hour or so after procedure, if doing well.
She should go home on clindamycin and should be seen in f/u by us or her ENT physician when she is back home from college
== END 2024-02-08 10:14 | disposition home or self-care (01) ==
LOC: EMR 22:00
PROVIDERS: EMERGENCY PHYSICIAN Emergency Medicine
DX: J36 Peritonsillar abscess (principal)
CPT/HCPCS: 42700; 70491; 80053; 84703; 85025; 86308; 96361; 96365; 96375; 99285; Q9967

== ENCOUNTER 2025-02-15 07:32 | Emergency (ER) | payer OTHER, SELFPAY ==
[2025-02-15 07:38] VITALS: BP 118/63
[2025-02-15 07:51] VITALS: BMI 30.8
--- NOTE | 2025-02-15 07:57 | ED.GENMED ---
History of Present Illness
General
Chief Complaint: Abdominal Symptoms
Source: patient
Time Seen by Provider: 02/15/25 07:44
History of Present Illness
History of Present Illness:
19-year-old female presenting to the emergency department for evaluation of persistent nausea and vomiting that started around 4 AM, did not take anything for her symptoms prior to arrival. Patient notes that last night she was out with friends had
approximately 5 vodka redbulls which she believes could be the culprit for her current symptoms now. Patient also states she was recently started on Prozac for anxiety but has not had any GI upset since initiating the medication. She denies any
fevers, diarrhea, known sick contacts, recent travel or any other concerns. She is not concerned for
Past History
Past History
ED Past Medical History: None; Negative Asthma, HTN, Hypercholesterolemia or NIDDM
ED Past Surgical History: Tonsilectomy
Social History
Tobacco: Non-smoker
Alcohol: Occasional
Drug: None
Personal: Single
Living: other ([facility])
Review of Systems
Review of Systems
All Other Systems: ROS reviewed and negative except as documented in HPI and ROS
Phy Exam
Physical Exam
Physical Exam:
GENERAL: Alert , in no apparent distress
EYE: clear conjunctiva b/l
HEAD: NCAT
ENT: o/p clr, mmm.
CARDIAC: Regular rate and rhythm .
LUNGS: Clear breath sounds bilaterally, no acute respiratory distress, no wheezes/rales/rhonchi
ABDOMEN: Soft, without focal tenderness, no r/g, no cvat
NEUROLOGICAL: Alert and oriented
SKIN: Warm and dry, skin intact.
MUSCULOSKELETAL: No edema, well perfused.
PSYCH: Normal and appropriate interaction.
Scores
Heart Failure Risk
Heart Failure Risk Score: Not Applicable
Heart Score for Chest Pain Patients
STEMI patient?: Not applicable
Withdrawal Assessment of Alcohol
Withdrawal Assessment Completed?: Not applicable
Course
Orders/Labs/Results
Orders:
Orders
02/15/25 07:44
0.9% Sodium Chloride 1000 ml [Nss] 1,000 ml IV BOLUS
Ondansetron Injectable [Zofran] 4 mg IV NOW STA
02/15/25 07:45
Test Result ONCE
02/15/25 08:03
Complete Blood Count/With Diff Urgent
Comprehensive Metabolic Panel Urgent
HCG, Serum Qualitative Screen Urgent
Lipase Urgent
02/15/25 09:18
Lactated Ringers [Lr] 1,000 ml IV BOLUS
Ondansetron Injectable [Zofran] 4 mg IV NOW STA
Abnormal Lab Results
02/15/25
08:03
MPV 10.9 H fL
(7.4-10.4)
02/15/25 08:03
02/15/25 08:03
Vital Signs
Initial and Last Documented VS:
Initial Vital Signs
Temp Pulse Resp BP Pulse Ox
97.6 F 97 16 118/63 100
02/15/25 07:38 02/15/25 07:38 02/15/25 07:38 02/15/25 07:38 02/15/25 07:38
Last Documented Vital Signs
Temp Pulse Resp BP Pulse Ox
97.6 F 68 16 114/63 100
02/15/25 07:38 02/15/25 11:06 02/15/25 07:38 02/15/25 10:00 02/15/25 10:30
MDM/Problems Addressed
Differential Diagnosis Includes:
ETOH intoxication/withdrawals
Electrolyte imbalance
Dehydration
IBETH
MDM/Problems Addressed:
19-year-old female presenting to the ER for evaluation of persistent nausea and vomiting following a night of drinking. She is in no acute distress, hemodynamically stable. Will check labs including test and treat with fluids and Zofran.
Certainly possibility for medication side effects however given patient has been taking this medication without any complications since initiation I have less suspicion for this.
*Pulse Oximetry
SaO2: 100
Oxygen Mode of Delivery: Room air
Patient hypoxic: no
*Critical Care Note
Total Time (30-74mins, 75-104mins- exclusive of procedures): Not Applicable
Patient Management
Escalation/DeEscalation of care consider admission/obs:
Following completion of fluids and Zofran patient reports feeling significantly better and ready to be discharged home. Prescription for Zofran sent to pharmacy. Patient aware of return precautions.
ED Attending Note
-
Portions of this chart may have been created with voice recognition software.� Occasional wrong word or��sound alike� substitutions may have occurred due to the inherent limitations of voice recognition software.
Discharge Plan
Departure
Patient Disposition: Home (Routine Discharge)
Date of Disposition: 02/15/25
Time of Disposition: 10:24
Patient with high blood pressure during this ER visit?: No
Discharge Problem:
Nausea and vomiting
Instructions: Nausea and Vomiting, Adult (DC)
Prescriptions:
New
ondansetron 4 mg tablet,disintegrating
4 mg PO TIDPRN PRN (Reason: nausea/vomiting) Qty: 6 0RF
No Action
ondansetron 4 mg tablet,disintegrating
4 mg PO QID PRN (Reason: nausea and vomiting) Qty: 20 0RF
clindamycin HCl 150 mg capsule
450 mg PO TID 7 Days Qty: 63 0RF
Referrals:
NONE,* [Family Provider, Internal Medicine]
Interventions
Interventions:
*Risk Screen - Suicide Last Done: 02/15/25 07:38
*General Assessment Last Done: 02/15/25 07:38
*Neglect/Abuse Screening Last Done: 02/15/25 07:38
*ED COVID-19 Vaccine History Last Done: 02/15/25 08:08
*ED Influenza Vaccine History Last Done: 02/15/25 08:08
[facility] Fall Risk Assessment Tool Last Done: 02/15/25 08:07
*Nursing Disposition Last Done: 02/15/25 11:06
YU-Xbogbh-Husoqrxyhs Assessment Last Done: 02/15/25 08:08
Discharge Date and Time
Discharge Date/Time: 02/15/25 11:06
Print Language: NIGERIEN
[2025-02-15] MEDS: ZOFRAN 4 MG IV ×2 (07:58→09:26)
[2025-02-15] MEDS: NSS 1000 IV (07:58)
[2025-02-15 08:01] VITALS: BP 111/69
[2025-02-15 08:20] LABS: Hematocrit 42.0 % (37.0-47.0); Hemoglobin 14.3 g/dL (12.0-16.0); Mean Corp Hgb Conc. 34.0 g/dL (33.0-37.0); Mean Corpuscular Volume 87.7 fL (81.0-99.0); Nucleated Red Blood Cells % 0 %; Platelet Count 339 10^3/uL (130-400); Red Cell Dist. Width 11.9 % (11.5-14.5)
[2025-02-15 08:30] LABS: HCG, Serum Qualitative Screen Negative
[2025-02-15 08:38] LABS: ALT (SGPT) 21 U/L (0-35); AST (SGOT) 23 U/L (14-36); Albumin 4.9 g/dl (3.5-5.0); Alkaline Phosphatase 62 U/L (38-126); Blood Urea Nitrogen 9 mg/dl (7-17); Calcium 9.4 mg/dl (8.4-10.2); Carbon Dioxide 25 mmol/L (22-30); Chloride 103 mmol/L (98-107); Estimated Creatinine Clearance > 125 ml/min; Glucose 89 mg/dl (70-99); Lipase 193 U/L (23-300); Potassium 4.0 mmol/L (3.5-5.1); Sodium 139 mmol/L (135-145); Total Protein 7.9 g/dl (6.3-8.2); eGFR > 60.00
[2025-02-15 09:01] VITALS: BP 110/62
[2025-02-15] MEDS: LR 1000 IV (09:28)
[2025-02-15 10:00] VITALS: BP 114/63
== END 2025-02-15 11:06 | disposition home or self-care (01) ==
LOC: EMR 07:32
PROVIDERS: Physician Assistant Medical; EMERGENCY PHYSICIAN Emergency Medicine
DX: R11.2 Nausea with vomiting, unspecified (principal)
CPT/HCPCS: 96374; 96376; 96361; 99284; 80053; 83690; 84703; 85025